=== PATIENT | female | born 1955 | race African-American/Black ===

== ENCOUNTER 2018-07-28 22:21 | Inpatient (IN) | payer MEDICARE, MEDICAID ==
[~2018-07-28] VITALS: Ht 170.2 cm; Wt 90.7 kg
--- NOTE | ~2018-07-28 | CN ---
PATIENT NAME:CAMILO CARR MEDICAL RECORD: [id number] : 53 LOCATION:D.MS Le2239 ADMIT DATE: 07/28/18 ACCOUNT: [id number] CONSULTING PHYSICIAN: JOB MCCULLOUGH MD REFERRING PHYSICIAN: NIKO HUMPHREY MD DATE OF CONSULTATION: 07/29/2018 CONSULT REQUESTING PHYSICIAN: Niko Humphrey MD REASON FOR CONSULTATION: Acute asthma exacerbation with syncopal episode. HISTORY OF PRESENT ILLNESS: Ms. Carr is a 62-year-old -Emir[place] female who has a history of COPD and asthma. The patient is steroid dependent. 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 According to the patient, she was in labor and delivery with the family. She passed out over there and brought into the ER with worsening shortness of breath. At that time, the patient was awake and alert, but she was coughing with yellow-colored sputum production. She hears herself wheezing. The cough is spasmodic in nature. REVIEW OF SYSTEMS: Mainly in the history of present illness. PAST MEDICAL HISTORY: 1. Hypertension. 2. CHF. 3. COPD. 4. Asthma. 5. Anxiety, depression. ALLERGIES: She is allergic to PENICILLIN. MEDICATIONS: She is on alprazolam, prednisone, and fluticasone inhaler. PERSONAL AND SOCIAL HISTORY: The patient is an ex-smoker. She is a nondrinker. FAMILY HISTORY: Noncontributory. PHYSICAL EXAMINATION: GENERAL: Now, the patient is lying comfortably. She is not in acute distress. VITAL SIGNS: The blood pressure 144/54, pulse is 70, respirations 20, temperature 98.2, SPO2 is 96% on 3 liter nasal cannula. HEENT: Conjunctivae are pink. Sclerae nonicteric. NECK: Supple, no JVD. CHEST: There is prolonged expiration with wheezing. HEART: Rhythm regular, normal sound, no murmur. The heart sounds are bit distant. ABDOMEN: Soft, bowel sounds present. No hepatosplenomegaly. RECTAL: Deferred. EXTREMITIES: No cyanosis, no clubbing, no pedal edema. SKIN: Warm, normal turgor. CENTRAL NERVOUS SYSTEM: The patient is awake and alert. There are no obvious cranial nerve abnormalities. The gait was not tested. IMAGING: Chest radiograph: There is increased interstitial marking, no acute infiltrate. CONSULT REPORT [id number] CAMILO CARR LABORATORY DATA: CBC: WBC 10.6, hemoglobin 15.2, hematocrit is 45.4, the platelet count is 287, neutrophils are 86.2%. Chemistry: Sodium 141, potassium 4.1, BUN is 13, creatinine is 1.3, glucose 198. ABG: The pH was 7.34, pCO2 was 36.7, the pO2 was 227 on 100% nonrebreather. IMPRESSION: 1. Vlyrh-ne-gyfeogq hypoxic respiratory failure. 2. Acute exacerbation of asthma and COPD. 3. Asthma COPD overlap syndrome. 4. Acute bronchitis. 5. Syncopal episode. 6. Allergic rhinitis. 7. Acute cough. RECOMMENDATION: 1. Albuterol ipratropium nebulizer q.4 hourly and 2 hourly p.r.n., discontinue Tudorza, methylprednisolone IV. Start on Brovana and budesonide nebulizer. 2. Start on Singulair 10 mg a day. 3. Supplemental oxygen as required. 4. Continue oral Lasix. 5. Check the cardiac echo. 6. Follow up labs and chest radiograph. The syncopal episode is most likely cough syncope with the patient's severe bronchospasm and coughing. Dr. Humphrey, thank you for involving me in the care of Ms. Carr. TRANSINT:[id number] Voice Confirmation ID: [id number] DOCUMENT ID: [id number] JOB MCCULLOUGH MD CC: [id number] DICTATION DATE: 07/29/18 140 TRANSMISSION LINE ENGINEER: 07/29/18 1418 ADM IN [place] [id number] [place] [address]
--- NOTE | ~2018-07-28 | EC ---
PATIENT:CAMILO CARR DATE OF SERVICE: 07/29/18 SEX: F MEDICAL RECORD: [id number] DATE OF : 53 LOCATION:D.MS Sosa AGE OF PATIENT: 62 ADMISSION DATE: 07/29/18 REFERRING PHYSICIAN: INTERPRETING PHYSICIAN: JACOBO CRABTREE MD ECHOCARDIOGRAM REPORT ECHO CHARGES 4 ECHO COMPLETE Date: 07/30/18 CLINICAL DIAGNOSIS: SYNCOPAL, PUL HTN ECHOCARDIOGRAPHIC MEASUREMENTS (adult normal given) AC root (d.<3.7cm) 2.3 cm LV Septum d (<1.2 cm> 1.0 cm Valve Excursion 1.0 cm LV Septum (systole) 1.1 cm Left Atria (s.<4.0cm> 3.5 cm LVPW d(<1.2cm) 0.9 cm RV (d.<2.3cm) 3.1 cm LVPW (sytole) 1.0 cm LV diastole(<5.6CM) 4.9 cm MV E-F(>70mm/sec) cm LV systole 3.9 cm LVOT Diameter 1.8 cm MV exc.(>10mm) cm Est.ejection fraction (50-75%) % DOPPLER: LVIT cm/sec A 98 cm/sec E 81 cm/sec LA cm/sec RVSP 18.9 mmHg LVOT 155 cm/sec AOP1/2T m/s Asc. Ao 197 cm/sec RVOT 100 cm/sec RA cm/sec PA 97 cm/sec AV Gradient Peak 15.6 mmHg AV Mean 10.6 mmHg AV Area 2.2 cm MV Gradient Peak 5.6 mmHg MV Mean 3.0 mmHg MV Area cm COMMENTS: Director Of Group Counseling Program: Irving HERNANDEZ Drill Press Hand: 1 Dr. Jay TAPE# PACS Pericardial Effusion N DATE OF SERVICE: Adequate 2D echo, color flow, spectral Doppler, and M-mode. No LVH. LV internal dimensions are normal. Wall motion is normal. EF greater than 50% to 55%. Aortic valve sclerosis without stenosis by Doppler interrogation. Left atrium normal at 3.5 cm. Mitral valve shows no prolapse. Trace MR. Right-sided chambers are normal. Trace TR. TRANSINT:[id number] Voice Confirmation ID: [id number] DOCUMENT ID: [id number] ECHOCARDIOGRAM REPORT [id number] CAMILO CARR JACOBO CRABTREE MD at 0843 CC: [id number] DICTATION DATE: 08/01/18 0957 COLOR PASTE MIXER: 08/01/18 1137 DIS IN 08/03/18 [place] [id number] [place] [id number]
[2018-07-28 22:35] LABS: BASOPHILS 0.1 % (0-2); EOSINOPHILS 0 % (0-7); HEMATOCRIT 45.4 % (36.0-48.0); HEMOGLOBIN 15.2 g/dL (12-16); IMMATURE GRANULOCYTES 0.3 % (0-5); LYMPHOCYTES 12.5 % (15-50); MCH 28.7 pg (26.0-34.0); MCHC 33.5 g/dL (31.0-37.0); MCV 85.7 fL (80.0-100.0); MEAN PLATELET VOLUME 10.7 fL (7.4-10.4); MONOCYTES 0.9 % (2-11); NEUTROPHILS 86.2 % (40-80); PLATELET COUNT 287 10x3/uL (130-400); RDW 15.1 % (11.5-14.5); WBC 10.6 10x3/uL (4.8-10.8)
[2018-07-28 22:46] VITALS: BP 159/127
[2018-07-28 22:49] LABS: ALBUMIN 3.3 g/dL (3.4-5.0); ALKALINE PHOSPHATASE 122 U/L (46-116); ALT (SGPT) 23 U/L (10-68); BILIRUBIN - TOTAL 0.25 mg/dL (0.2-1.3); CALC OSMOLALITY 286 mosm/kg (275-300); CALCIUM 8.5 mg/dL (8.5-10.1); CARBON DIOXIDE 19.5 mmol/L (21.0-32.0); CHLORIDE - SERUM 107 mmol/L (98-107); CREATININE - SERUM 1.3 mg/dL (0.6-1.3); POTASSIUM - SERUM 4.1 mmol/L (3.5-5.1); PROTEIN - SERUM 7.5 g/dL (6.4-8.2); SODIUM 141 mmol/L (136-145); UREA NITROGEN 13 mg/dL (7-18); eGFR NON AFRICAN AMERICAN 44 mL/min (90-120)
[2018-07-28] MEDS ORDERED: PREDNISONE1 MG (22:53)
[2018-07-28] MEDS ORDERED: HYDROCODON-ACE1 EAC7 PO (22:54)
[2018-07-28] MEDS ORDERED: XANAX1 MG PO (22:54)
[2018-07-28 22:55] LABS: MAGNESIUM - SERUM 1.9 mg/dL (1.8-2.4); PRO BNP 24 pg/mL (0-125); TROPONIN-I < 0.017 ng/mL (0.000-0.060)
[2018-07-28 23:09] LABS: GLUCOSE 198 mg/dL (74-106)
[2018-07-28 23:27] VITALS: BP 106/75
[2018-07-29 00:01] VITALS: BP 135/74
[2018-07-29] MEDS ORDERED: FUROSEMIDE20 MG PO (01:47)
[2018-07-29 03:28] VITALS: BMI 31.4
[2018-07-29 09:30] VITALS: BP 135/64
[2018-07-29] MEDS ORDERED: HYDROCODONE-APA1 TAB PO (10:41)
[2018-07-29] MEDS ORDERED: SPIRIVA18 MCG INH (10:43)
[2018-07-29] MEDS ORDERED: PROAIR HFA8.5 GM INH (10:43)
[2018-07-29] MEDS ORDERED: TRAZODONE HCL50 MG PO (10:43)
[2018-07-29 12:34] VITALS: BP 144/54
[2018-07-29 13:52] LABS: THYROID STIMULATING HORMONE 0.26 uIU/mL (0.36-3.74)
[2018-07-29 13:56] VITALS: Ht 170.2 cm; Wt 90.7 kg
[2018-07-29 16:36] VITALS: BP 142/78
[2018-07-29 18:35] VITALS: BP 138/60
[2018-07-30] VITALS (7 sets, daily range): BP systolic 141–168; BP diastolic 78–83
[2018-07-30 05:35] LABS: HEMATOCRIT 40.6 % (36.0-48.0); HEMOGLOBIN 13.3 g/dL (12-16); LYMPHOCYTES 4.3 % (15-50); MCH 27.8 pg (26.0-34.0); MCHC 32.8 g/dL (31.0-37.0); MCV 84.8 fL (80.0-100.0); MEAN PLATELET VOLUME 10.3 fL (7.4-10.4); NEUTROPHILS 93.7 % (40-80); RBC 4.79 10x6/uL (4.00-5.40); RDW 14.7 % (11.5-14.5)
[2018-07-30 05:39] LABS: PLATELET COUNT 221 10x3/uL (130-400); WBC 15.1 10x3/uL (4.8-10.8)
[2018-07-30 06:15] LABS: ALBUMIN 2.8 g/dL (3.4-5.0); BILIRUBIN - TOTAL 0.16 mg/dL (0.2-1.3); CALCIUM 8.4 mg/dL (8.5-10.1); CREATININE - SERUM 1.2 mg/dL (0.6-1.3); PROTEIN - SERUM 6.7 g/dL (6.4-8.2)
[2018-07-31 00:54] VITALS: BP 138/58
[2018-07-31 06:22] LABS: BASOPHILS 0.1 % (0-2); EOSINOPHILS 0 % (0-7); HEMATOCRIT 44.9 % (36.0-48.0); HEMOGLOBIN 14.8 g/dL (12-16); IMMATURE GRANULOCYTES 0.6 % (0-5); LYMPHOCYTES 5.8 % (15-50); MCH 28.2 pg (26.0-34.0); MCV 85.5 fL (80.0-100.0); MEAN PLATELET VOLUME 10.8 fL (7.4-10.4); NEUTROPHILS 90.5 % (40-80); PLATELET COUNT 257 10x3/uL (130-400); RBC 5.25 10x6/uL (4.00-5.40); RDW 15.2 % (11.5-14.5); WBC 13.6 10x3/uL (4.8-10.8)
[2018-07-31 06:33] LABS: ANION GAP 17.2 mmol/L (8-16); BILIRUBIN - TOTAL 0.12 mg/dL (0.2-1.3); CALCIUM 8.5 mg/dL (8.5-10.1); CARBON DIOXIDE 19.9 mmol/L (21.0-32.0); CREATININE - SERUM 1.2 mg/dL (0.6-1.3); POTASSIUM - SERUM 4.1 mmol/L (3.5-5.1); PROTEIN - SERUM 7.3 g/dL (6.4-8.2)
[2018-07-31 08:46] VITALS: BP 134/74
[2018-07-31 16:38] VITALS: BP 144/76
[2018-07-31 20:00] VITALS: BP 128/75
[2018-08-01] VITALS: BP 130/70
[2018-08-01 05:53] VITALS: BP 129/66
[2018-08-01 06:08] LABS: BASOPHILS 0.1 % (0-2); EOSINOPHILS 0 % (0-7); HEMATOCRIT 43.3 % (36.0-48.0); HEMOGLOBIN 14.3 g/dL (12-16); IMMATURE GRANULOCYTES 0.5 % (0-5); LYMPHOCYTES 6.6 % (15-50); MCH 27.9 pg (26.0-34.0); MCV 84.4 fL (80.0-100.0); MEAN PLATELET VOLUME 10.8 fL (7.4-10.4); MONOCYTES 3.4 % (2-11); NEUTROPHILS 89.4 % (40-80); PLATELET COUNT 246 10x3/uL (130-400); RBC 5.13 10x6/uL (4.00-5.40); RDW 15.1 % (11.5-14.5)
[2018-08-01 06:11] LABS: WBC 9.7 10x3/uL (4.8-10.8)
[2018-08-01 06:28] LABS: ALBUMIN 2.7 g/dL (3.4-5.0); ANION GAP 12.7 mmol/L (8-16); BILIRUBIN - TOTAL 0.24 mg/dL (0.2-1.3); CALCIUM 8.6 mg/dL (8.5-10.1); CARBON DIOXIDE 23.4 mmol/L (21.0-32.0); POTASSIUM - SERUM 4.1 mmol/L (3.5-5.1); PROTEIN - SERUM 6.6 g/dL (6.4-8.2)
[2018-08-01 10:08] VITALS: BP 132/78
[2018-08-01 20:00] VITALS: BP 127/65
[2018-08-02 06:01] LABS: BASOPHILS 0.1 % (0-2); EOSINOPHILS 0 % (0-7); HEMOGLOBIN 14.7 g/dL (12-16); IMMATURE GRANULOCYTES 0.6 % (0-5); LYMPHOCYTES 11.2 % (15-50); MCH 27.9 pg (26.0-34.0); MCHC 32.7 g/dL (31.0-37.0); MCV 85.6 fL (80.0-100.0); MONOCYTES 7.5 % (2-11); NEUTROPHILS 80.6 % (40-80); PLATELET COUNT 259 10x3/uL (130-400); RBC 5.26 10x6/uL (4.00-5.40); RDW 15.1 % (11.5-14.5)
[2018-08-02 06:03] LABS: WBC 13.3 10x3/uL (4.8-10.8)
[2018-08-02 06:24] VITALS: BP 123/74
[2018-08-02 06:29] LABS: ALBUMIN 2.5 g/dL (3.4-5.0); ANION GAP 14.2 mmol/L (8-16); BILIRUBIN - TOTAL 0.17 mg/dL (0.2-1.3); CALCIUM 8.2 mg/dL (8.5-10.1); CREATININE - SERUM 1.1 mg/dL (0.6-1.3); POTASSIUM - SERUM 4.2 mmol/L (3.5-5.1)
[2018-08-02 09:21] VITALS: BP 158/71
[2018-08-02 11:57] VITALS: BP 91/70
[2018-08-02 17:49] VITALS: BP 110/90
[2018-08-02 20:00] VITALS: BP 111/55
[2018-08-03 06:13] LABS: BASOPHILS 0 % (0-2); EOSINOPHILS 0 % (0-7); HEMATOCRIT 47.1 % (36.0-48.0); HEMOGLOBIN 15.7 g/dL (12-16); IMMATURE GRANULOCYTES 0.6 % (0-5); LYMPHOCYTES 5.6 % (15-50); MCH 28.1 pg (26.0-34.0); MCHC 33.3 g/dL (31.0-37.0); MCV 84.4 fL (80.0-100.0); MEAN PLATELET VOLUME 11.2 fL (7.4-10.4); MONOCYTES 5.8 % (2-11); PLATELET COUNT 262 10x3/uL (130-400); RBC 5.58 10x6/uL (4.00-5.40); RDW 15.2 % (11.5-14.5)
[2018-08-03 06:19] LABS: WBC 17.6 10x3/uL (4.8-10.8)
[2018-08-03 06:43] LABS: ALBUMIN 2.6 g/dL (3.4-5.0); ANION GAP 15.4 mmol/L (8-16); BILIRUBIN - TOTAL 0.12 mg/dL (0.2-1.3); CARBON DIOXIDE 23.7 mmol/L (21.0-32.0); CREATININE - SERUM 1.2 mg/dL (0.6-1.3); POTASSIUM - SERUM 4.1 mmol/L (3.5-5.1); PROTEIN - SERUM 6.7 g/dL (6.4-8.2)
[2018-08-03 10:30] VITALS: BP 127/70
[2018-08-03] MEDS ORDERED: IPRAT-ALBUT 0.5-3 ML UPD (12:53)
[2018-08-03] MEDS ORDERED: BROVANA15 MCG/2 M INH (12:53)
[2018-08-03] MEDS ORDERED: NICODERM C1 PATCH .2 TRANSDERM (12:54)
[2018-08-03] MEDS ORDERED: LISINOPRIL10 MG PO (12:54)
[2018-08-03] MEDS ORDERED: HCTZ25 MG PO (12:55)
[2018-08-03] MEDS ORDERED: SINGULAIR10 MG PO (12:56)
[2018-08-03] MEDS ORDERED: K-DUR20 MEQ PO (12:56)
[2018-08-03] MEDS ORDERED: TESSALON PERLE100 MG PO (12:56)
[2018-08-03] MEDS ORDERED: PULMICORT0.5 MG/21 UPD (12:56)
[2018-08-03] MEDS ORDERED: PREDNISONE20 MG PO (12:59)
[2018-08-03 13:24] VITALS: BP 102/88
== END 2018-08-03 15:54 | disposition home or self-care (01) | DRG 189 ==
LOC: D.ER 22:21 → D.EDHOLD 23:52 → OBSVTIME 23:52 → D.MS 07-29 00:06
PROVIDERS: Family Medicine
DX: J96.01 Acute respiratory failure with hypoxia (principal); J44.0 Chronic obstructive pulmonary disease with (acute) lower respiratory infection; M35.1 Other overlap syndromes; J44.1 Chronic obstructive pulmonary disease with (acute) exacerbation; J45.901 Unspecified asthma with (acute) exacerbation; F17.293 Nicotine dependence, other tobacco product, with withdrawal; J20.9 Acute bronchitis, unspecified; R05 Cough; E66.9 Obesity, unspecified; Z68.31 Body mass index [BMI] 31.0-31.9, adult; G89.29 Other chronic pain; I11.0 Hypertensive heart disease with heart failure; I50.9 Heart failure, unspecified; F41.9 Anxiety disorder, unspecified

== ENCOUNTER 2018-12-15 16:01 | Inpatient (IN) | payer MEDICARE ==
[~2018-12-15] VITALS: Ht 170.2 cm; Wt 93.9 kg
--- NOTE | ~2018-12-15 | CN ---
PATIENT NAME:CAMILO CARR MEDICAL RECORD: [id number] : 53 LOCATION:D. D.2102 ADMIT DATE: 12/15/18 ACCOUNT: [id number] CONSULTING PHYSICIAN: JOB MCCULLOUGH MD REFERRING PHYSICIAN: KARSON KAUR DO DATE OF CONSULTATION: 12/17/2018 CONSULT REQUESTING PHYSICIAN: Dr. Mancilla. REASON FOR CONSULTATION: Acute exacerbation of chronic obstructive pulmonary disease and shortness of breath. HISTORY OF PRESENT ILLNESS: Ms. Carr is a 63-year-old -[place]ub[place] female, very well known to me from previous hospitalization. According to the patient, she is sick for the last few days. She is admitted a couple of times to [facility]. She is coughing. She is wheezing. She has shortness of breath with mild exertion. She is also having obstructive sleep apnea, for which she is using the CPAP machine. She is feeling a bit better, but is still coughing. REVIEW OF SYSTEMS: As in history of present illness. PAST MEDICAL HISTORY: 1. Hypertension. 2. Congestive heart failure. 3. History of syncope. 4. Chronic obstructive pulmonary disease. 5. Asthma. 6. Nocturnal hypoxia. 7. BiPAP. 8. Anxiety and depression. PAST SURGICAL HISTORY: She had a cholecystectomy. ALLERGIES: SHE IS ALLERGIC TO PENICILLIN. MEDICATIONS: She is on methylprednisolone IV, doxycycline IV. Her other medication is reviewed. PERSONAL AND SOCIAL HISTORY: The patient is an ex-smoker. She is a nondrinker. FAMILY HISTORY: Noncontributory. PHYSICAL EXAMINATION: GENERAL: Now, the patient is lying comfortably in bed. She is not in acute distress. HEENT: Conjunctivae are pink. Sclerae nonicteric. NECK: Neck is supple, no JVD. CHEST: There is prolonged expiration with wheezing. HEART: Rhythm regular, normal sound, no murmur. ABDOMEN: Abdomen is soft, bowel sounds present. No hepatosplenomegaly. RECTAL: Deferred. EXTREMITIES: No cyanosis, no clubbing, no pedal edema. CENTRAL NERVOUS SYSTEM: The patient is awake and alert. There are no obvious cranial nerve abnormality. The gait was not tested. CONSULT REPORT [id number] CAMILO CARR CHEST RADIOGRAPH: There is no acute infiltrate. IMPRESSION: 1. Ptafp-gt-lwebrtl hypoxic respiratory failure. 2. Acute exacerbation of chronic obstructive pulmonary disease. 3. COPD asthma overlap syndrome. 4. Tracheobronchitis. 5. Acute cough. 6. Allergic rhinitis. 7. Morbid obesity. 8. Congestive heart failure. 9. Obstructive sleep apnea, on CPAP at night with oxygen. RECOMMENDATION: 1. Continue doxycycline IV, methylprednisolone IV. 2. Albuterol, ipratropium nebulizer. 3. Brovana, budesonide nebulizer. 4. Singulair 10 mg daily. 5. Mucinex DM. 6. Tessalon Perles. 7. Follow up labs and chest radiograph. Thank you for involving me in the care of Ms. Carr. TRANSINT:[id number] Voice Confirmation ID: [id number] DOCUMENT ID: [id number] JOB MCCULLOUGH MD CC: [id number] DICTATION DATE: 12/17/18 163 RECORDS ADMINISTRATOR: 12/17/182039 ADM IN [facility] [address] [place] [address]
[~2018-12-15 16:01] MED LIST: BROVANA15 MCG/2 M INH; FUROSEMIDE20 MG PO; HCTZ25 MG PO; HYDROCODON-ACE1 EAC7 PO; HYDROCODONE-APA1 TAB PO; IPRAT-ALBUT 0.5-3 ML UPD; K-DUR20 MEQ PO; LISINOPRIL10 MG PO; NICODERM C1 PATCH .2 TRANSDERM; PREDNISONE1 MG; PREDNISONE20 MG PO; PROAIR HFA8.5 GM INH; PULMICORT0.5 MG/21 UPD; SINGULAIR10 MG PO; SPIRIVA18 MCG INH; TESSALON PERLE100 MG PO; TRAZODONE HCL50 MG PO; XANAX1 MG PO
[2018-12-15 17:06] LABS: BASOPHILS 0.2 % (0-2); EOSINOPHILS 0 % (0-7); HEMATOCRIT 46.4 % (36.0-48.0); IMMATURE GRANULOCYTES 0.3 % (0-5); LYMPHOCYTES 7.8 % (15-50); MCH 27.9 pg (26.0-34.0); MCHC 32.3 g/dL (31.0-37.0); MCV 86.2 fL (80.0-100.0); MEAN PLATELET VOLUME 9.9 fL (7.4-10.4); MONOCYTES 2.6 % (2-11); NEUTROPHILS 89.1 % (40-80); PLATELET COUNT 255 10x3/uL (130-400); RBC 5.38 10x6/uL (4.00-5.40); RDW 16.6 % (11.5-14.5); WBC 15.5 10x3/uL (4.8-10.8)
[2018-12-15 17:19] LABS: ANION GAP 17.4 mmol/L (8-16); BILIRUBIN - TOTAL 0.4 mg/dL (0.2-1.3); CALCIUM 8.6 mg/dL (8.5-10.1); CARBON DIOXIDE 21.1 mmol/L (21.0-32.0); CREATININE - SERUM 1.1 mg/dL (0.6-1.3); POTASSIUM - SERUM 4.5 mmol/L (3.5-5.1); PROTEIN - SERUM 7.8 g/dL (6.4-8.2)
[2018-12-15 18:12] VITALS: BP 117/56
[2018-12-16] VITALS: BP 109/54
[2018-12-16 04:00] VITALS: BP 120/52
[2018-12-16] MEDS ORDERED: DOXYCYCLINE HY100 M2 PO (04:10)
[2018-12-16] MEDS ORDERED: ZITHROMAX250 MG PO (04:10)
[2018-12-16] MEDS ORDERED: PREDNISONE20 MG PO (04:11)
[2018-12-16] MEDS ORDERED: STERAPRED DS 1010 MG PO (04:11)
[2018-12-16] MEDS ORDERED: DESERYL50 M2 PO (04:11)
[2018-12-16 06:12] LABS: BASOPHILS 0.2 % (0-2); EOSINOPHILS 0.1 % (0-7); HEMOGLOBIN 13.9 g/dL (12-16); IMMATURE GRANULOCYTES 0.2 % (0-5); LYMPHOCYTES 6.5 % (15-50); MCH 27.3 pg (26.0-34.0); MCHC 31.6 g/dL (31.0-37.0); MCV 86.3 fL (80.0-100.0); MEAN PLATELET VOLUME 11.2 fL (7.4-10.4); PLATELET COUNT 222 10x3/uL (130-400); RDW 16.4 % (11.5-14.5); WBC 12.5 10x3/uL (4.8-10.8)
[2018-12-16 06:34] LABS: ANION GAP 18.9 mmol/L (8-16); CALCIUM 8.4 mg/dL (8.5-10.1); CARBON DIOXIDE 20.6 mmol/L (21.0-32.0); CREATININE - SERUM 1.1 mg/dL (0.6-1.3); POTASSIUM - SERUM 4.5 mmol/L (3.5-5.1)
[2018-12-16 07:57] VITALS: BP 133/69
[2018-12-16 12:41] VITALS: Ht 170.2 cm; Wt 93.9 kg
[2018-12-16 12:42] VITALS: BP 141/77
[2018-12-16 15:30] VITALS: BP 140/68
[2018-12-16 20:00] VITALS: BP 133/65
[2018-12-17 05:07] LABS: HEMOGLOBIN 13.9 g/dL (12-16); MCH 27.5 pg (26.0-34.0); MCHC 31.6 g/dL (31.0-37.0); MCV 87.1 fL (80.0-100.0); MEAN PLATELET VOLUME 10.8 fL (7.4-10.4); PLATELET COUNT 238 10x3/uL (130-400); RBC 5.05 10x6/uL (4.00-5.40); WBC 20.2 10x3/uL (4.8-10.8)
[2018-12-17 05:14] LABS: ALBUMIN 2.6 g/dL (3.4-5.0); ANION GAP 14.4 mmol/L (8-16); BILIRUBIN - TOTAL 0.19 mg/dL (0.2-1.3); CALCIUM 8.5 mg/dL (8.5-10.1); CARBON DIOXIDE 24.2 mmol/L (21.0-32.0); MAGNESIUM - SERUM 2.1 mg/dL (1.8-2.4); POTASSIUM - SERUM 4.6 mmol/L (3.5-5.1); PROTEIN - SERUM 7.1 g/dL (6.4-8.2)
[2018-12-17 05:50] LABS: EOSINOPHILS 1 % (0-7); LYMPHOCYTES 7 % (15-50); MONOCYTES 3 % (2-11); NEUTROPHILS 89 % (40-80); PLATELET ESTIMATE NORMAL
[2018-12-17 09:12] VITALS: BP 136/64
[2018-12-17 20:31] VITALS: BP 132/63
[2018-12-17 23:50] VITALS: BP 121/57
[2018-12-18 03:50] VITALS: BP 138/77
[2018-12-18 05:15] LABS: BASOPHILS 0.1 % (0-2); EOSINOPHILS 0 % (0-7); HEMATOCRIT 42.5 % (36.0-48.0); HEMOGLOBIN 13.2 g/dL (12-16); IMMATURE GRANULOCYTES 0.5 % (0-5); LYMPHOCYTES 3.5 % (15-50); MCH 27.4 pg (26.0-34.0); MCHC 31.1 g/dL (31.0-37.0); MCV 88.4 fL (80.0-100.0); MEAN PLATELET VOLUME 10.3 fL (7.4-10.4); MONOCYTES 3.2 % (2-11); NEUTROPHILS 92.7 % (40-80); PLATELET COUNT 266 10x3/uL (130-400); RBC 4.81 10x6/uL (4.00-5.40); RDW 16.4 % (11.5-14.5); WBC 22.1 10x3/uL (4.8-10.8)
[2018-12-18 05:50] LABS: ALBUMIN 2.5 g/dL (3.4-5.0); ANION GAP 14.5 mmol/L (8-16); BILIRUBIN - TOTAL 0.18 mg/dL (0.2-1.3); CALCIUM 8.2 mg/dL (8.5-10.1); CARBON DIOXIDE 23.2 mmol/L (21.0-32.0); CREATININE - SERUM 1.2 mg/dL (0.6-1.3); POTASSIUM - SERUM 4.7 mmol/L (3.5-5.1); PROTEIN - SERUM 6.7 g/dL (6.4-8.2)
[2018-12-18 10:50] VITALS: BP 132/67
[2018-12-18 21:32] VITALS: BP 139/63
[2018-12-18 23:55] VITALS: BP 101/62
[2018-12-19 03:55] VITALS: BP 128/74
[2018-12-19 05:10] LABS: HEMATOCRIT 42.4 % (36.0-48.0); HEMOGLOBIN 13.3 g/dL (12-16); MCH 27.4 pg (26.0-34.0); MCHC 31.4 g/dL (31.0-37.0); MCV 87.4 fL (80.0-100.0); MEAN PLATELET VOLUME 11.6 fL (7.4-10.4); PLATELET COUNT 186 10x3/uL (130-400); RBC 4.85 10x6/uL (4.00-5.40); RDW 16.4 % (11.5-14.5); WBC 20.4 10x3/uL (4.8-10.8)
[2018-12-19 05:27] LABS: ALBUMIN 2.4 g/dL (3.4-5.0); ANION GAP 13.2 mmol/L (8-16); BILIRUBIN - TOTAL 0.3 mg/dL (0.2-1.3); CALCIUM 8.3 mg/dL (8.5-10.1); CARBON DIOXIDE 25.9 mmol/L (21.0-32.0); MAGNESIUM - SERUM 2.2 mg/dL (1.8-2.4); POTASSIUM - SERUM 5.1 mmol/L (3.5-5.1); PROTEIN - SERUM 6.7 g/dL (6.4-8.2)
[2018-12-19 05:51] LABS: LYMPHOCYTES 2 % (15-50); MONOCYTES 6 % (2-11); NEUTROPHILS 89 % (40-80); PLATELET ESTIMATE NORMAL
[2018-12-19 09:40] VITALS: BP 131/62
[2018-12-19 14:30] VITALS: BP 125/52
[2018-12-19 17:53] VITALS: BP 150/75
[2018-12-19 20:00] VITALS: BP 147/86
[2018-12-19 22:08] VITALS: BP 147/86
[2018-12-20 01:00] VITALS: BP 141/75
[2018-12-20 04:00] VITALS: BP 125/65
[2018-12-20 04:54] LABS: BASOPHILS 0.2 % (0-2); EOSINOPHILS 0 % (0-7); HEMOGLOBIN 13.8 g/dL (12-16); IMMATURE GRANULOCYTES 1.2 % (0-5); LYMPHOCYTES 6.3 % (15-50); MCH 27.3 pg (26.0-34.0); MCHC 31.4 g/dL (31.0-37.0); MCV 87.1 fL (80.0-100.0); MEAN PLATELET VOLUME 10.2 fL (7.4-10.4); MONOCYTES 4.1 % (2-11); NEUTROPHILS 88.2 % (40-80); RBC 5.05 10x6/uL (4.00-5.40); RDW 16.4 % (11.5-14.5); WBC 18.4 10x3/uL (4.8-10.8)
[2018-12-20 04:57] LABS: PLATELET COUNT 273 10x3/uL (130-400)
[2018-12-20 05:05] LABS: ALBUMIN 2.4 g/dL (3.4-5.0); ANION GAP 13.2 mmol/L (8-16); BILIRUBIN - TOTAL 0.29 mg/dL (0.2-1.3); CALCIUM 8.2 mg/dL (8.5-10.1); CARBON DIOXIDE 27.7 mmol/L (21.0-32.0); CREATININE - SERUM 1.1 mg/dL (0.6-1.3); MAGNESIUM - SERUM 2.2 mg/dL (1.8-2.4); POTASSIUM - SERUM 4.9 mmol/L (3.5-5.1); PROTEIN - SERUM 6.9 g/dL (6.4-8.2)
[2018-12-20 08:37] VITALS: BP 130/68
[2018-12-20 11:39] VITALS: BP 131/64
[2018-12-20 15:44] VITALS: BP 138/59
[2018-12-20 20:00] VITALS: BP 112/72
[2018-12-21 04:55] VITALS: BP 139/60
[2018-12-21 05:32] LABS: BASOPHILS 0.1 % (0-2); EOSINOPHILS 0 % (0-7); HEMATOCRIT 44.5 % (36.0-48.0); HEMOGLOBIN 13.8 g/dL (12-16); IMMATURE GRANULOCYTES 0.8 % (0-5); MCH 27.2 pg (26.0-34.0); MCV 87.8 fL (80.0-100.0); MEAN PLATELET VOLUME 10.7 fL (7.4-10.4); NEUTROPHILS 92.1 % (40-80); PLATELET COUNT 256 10x3/uL (130-400); RBC 5.07 10x6/uL (4.00-5.40); RDW 16.3 % (11.5-14.5); WBC 17.3 10x3/uL (4.8-10.8)
[2018-12-21 06:02] LABS: ALBUMIN 2.3 g/dL (3.4-5.0); ANION GAP 14.2 mmol/L (8-16); BILIRUBIN - TOTAL 0.24 mg/dL (0.2-1.3); CALCIUM 8.2 mg/dL (8.5-10.1); CARBON DIOXIDE 27.5 mmol/L (21.0-32.0); CREATININE - SERUM 1.1 mg/dL (0.6-1.3); MAGNESIUM - SERUM 2.4 mg/dL (1.8-2.4); POTASSIUM - SERUM 4.7 mmol/L (3.5-5.1); PROTEIN - SERUM 6.5 g/dL (6.4-8.2)
[2018-12-21 08:02] VITALS: BP 137/70
[2018-12-21 12:20] VITALS: BP 132/73
[2018-12-21 15:18] VITALS: BP 134/73
[2018-12-21 20:00] VITALS: BP 108/54
[2018-12-22] VITALS: BP 124/71
[2018-12-22 04:00] VITALS: BP 115/60
[2018-12-22 08:58] VITALS: BP 148/76
[2018-12-22 11:55] VITALS: BP 143/73
[2018-12-22] MEDS ORDERED: OMNICEF300 MG PO (14:29)
[2018-12-22] MEDS ORDERED: ELIQUIS5 MG PO (14:32)
[2018-12-22] MEDS ORDERED: Nicoderm [PBKC] TRANSDERM (14:34)
[2018-12-22] MEDS ORDERED: PREDNISONE20 MG PO (15:46)
[2018-12-22 15:55] VITALS: BP 130/64
--- NOTE | 2018-12-22 16:47 | MORECARE ---
CASE MANAGEMENT DISCHARGE SUMMARY PATIENT: CAMILO CARR UNIT: [id number] ADM DATE: 12/15/18 AGE: 63 : 54 SEX: F ROOM/BED: D.2102 AUTHOR: YONATAN JONES PHYSICIAN: REFERRING PHYSICIAN: KARSON KAUR DO DATE OF SERVICE: 12/22/18 Discharge Plan Patient Name: CAMILO CARR [facility] [facility] 1955 Planned Disposition: Home Anticipated Discharge Date: 12/22/18 Discharge Date: Expected LOS: 7 Initial Reviewer: [email or web address] Initial Review Date: 12/22/2018 Generated: 12/22/18 5:47 pm DCPIA - Discharge Planning Initial Assessment Updated by [email or web address]: Patrick Huitron on 12/22/18 4:45 pm * Is the patient Alert and Oriented? Yes * How many steps to enter\exit or inside your home? NONE * PCP DR. SMITH IN [place] * Pharmacy [facility] [place] * Preadmission Environment Home Alone * ADLs Independent * Equipment Cane Nebulizer Oxygen * Other Equipment OXYGEN AT NIGHT ONLY UNKNOWN PROVIDER * List name and contact numbers for known caregivers / representatives who currently or will assist patient after discharge: APYTON LEI, SISTER, MICHELE KILPATRICK, SON, * Verbal permission to speak to the caregivers and representatives has been obtained from the patient. N/A * Community resources currently utilized Private Duty Care * Please name any agencies selected above. [facility], AIDE SERVICES, M-F, 3 HOURS DAILY * Additional services required to return to the preadmission environment? No * Can the patient safely return to the preadmission environment? Yes * Has this patient been hospitalized within the prior 30 days at any hospital? Yes Patient Name: CAMILO CARR Page [phone] at 1647 All edits/amendments must be made on the electronic document DICTATION DATE: 12/22/181645 MOBILE LOUNGE DRIVER: ADAM 12/22/181645 RPT#: [id number] DC DATE: STATUS: ADM IN [facility] [address] [place] [address] END OF REPORT
--- NOTE | 2018-12-22 16:57 | MORECARE ---
CASE MANAGEMENT DISCHARGE SUMMARY PATIENT: CAMILO CARR UNIT: [id number] ADM DATE: 12/15/18 AGE: 63 : 54 SEX: F ROOM/BED: D.2100 AUTHOR: KAERNDOC PHYSICIAN: REFERRING PHYSICIAN: KARSON KAUR DO DATE OF SERVICE: 12/22/18 Discharge Plan Patient Name: CAMILO CARR Facility: [facility]:[place] : 1955 Planned Disposition: Home Anticipated Discharge Date: 12/22/18 Discharge Date: Expected LOS: 7 Initial Reviewer: [email or web address] Initial Review Date: 12/22/2018 Generated: 12/22/18 5:57 pm Comments DCP- Discharge Planning Updated by [id number]: Patrick Huitron on 12/22/18 3:[address] Patient Name: CAMILO CARR Admission Status: ER Accout number: [id number] Admission Date: 12-15-2018 : 1955 Admission Diagnosis:SHORTNESS OF BREATH Attending: KARSON KAUR Current LOS: 7 Anticipated DC Date: 12-22-2018 Planned Disposition: Home Primary Insurance: [facility] [employer] Discharge Planning Comments: CM MET WITH PT IN ROOM TO DISCUSS DISCHARGE PLANNING AND NEEDS. PT REPORTS LIVING AT HOME INDEPENDENTLY AND ALONE. PT HAS OXYGEN AT NIGHT,NEBULIZER AND CANE FROM UNKNOWN MEDICAL EQUIPMENT COMPANY. PT HAS PERSONAL CARE WITH [facility] 5 DAYS PER WEEK, 3 HOURS PER DAY. CM DISCUSSED AVAILABILITY OF HOME HEALTH, REHAB SERVICES AND MEDICAL EQUIPMENT. PT DENIES DISCHARGE NEEDS, WILL ACCEPT [facility]SECALLS ORDERED AND REPORTS HER SISTER WILL PICK HER UP FOR DISCHARGE HOME. IMPORTANT MESSAGE FROM MEDICARE PROVIDED AND EXPLAINED. EAP SPECIALIST NURSE NOTIFIED. Development Technical Lead: Patrick Huitron DCPIA - Discharge Planning Initial Assessment Updated by [id number]: Patrick Huitron on 12/22/18 4:45 pm * Is the patient Alert and Oriented? Yes * How many steps to enter\exit or inside your home? NONE * PCP DR. SMITH IN [place] * Pharmacy [facility] IN [place] * Preadmission Environment Home Alone * ADLs Independent * Equipment Cane Nebulizer Oxygen * Other Equipment OXYGEN AT NIGHT ONLY UNKNOWN PROVIDER * List name and contact numbers for known caregivers / representatives who currently or will assist patient after discharge: PAYTON LEI, SISTER, MICHELE KILPATRICK, SON, * Verbal permission to speak to the caregivers and representatives has been obtained from the patient. N/A * Community resources currently utilized Private Duty Care * Please name any agencies selected above. [facility], AIDE SERVICES, M-F, 3 HOURS DAILY * Additional services required to return to the preadmission environment? No * Can the patient safely return to the preadmission environment? Yes * Has this patient been hospitalized within the prior 30 days at any hospital? Yes Coverage Notice Reviewer: [id number] - Patrick Huitron Notice Issued Date-Time: 12/22/2018 16:25 Notice Type: IM Discharge Notice Notice Delivered To: Patient Relationship to Patient: Cutter Grinder Operator Name: Delivery Method: HAND - Hand Delivered Talisha Days: Prior Verbal Notification: Recipient Understood Notice: Yes Recipient Signature: Yes Med Rec Note Co-signed by Attending: Coverage Notice Comment: Last DP export: 12/22/18 3:47 p Patient Name: CAMILO CARR Page 44762 at 1657 All edits/amendments must be made on the electronic document DICTATION DATE: 12/22/181655 ARCHITECTURAL MODEL MAKER: ADAM 12/22/181655 RPT#: [id number] DC DATE: STATUS: ADM IN [facility] [address] [place] [address] END OF REPORT
== END 2018-12-22 18:11 | disposition home or self-care (01) | DRG 189 ==
LOC: D.ER 16:01 → D.M2 21:54
PROVIDERS: Family Medicine; ADMIT Family Medicine
DX: J96.21 Acute and chronic respiratory failure with hypoxia (principal); J44.1 Chronic obstructive pulmonary disease with (acute) exacerbation; J45.901 Unspecified asthma with (acute) exacerbation; N17.9 Acute kidney failure, unspecified; I82.622 Acute embolism and thrombosis of deep veins of left upper extremity; I50.32 Chronic diastolic (congestive) heart failure; I11.0 Hypertensive heart disease with heart failure; G47.33 Obstructive sleep apnea (adult) (pediatric); F32.9 Major depressive disorder, single episode, unspecified; F41.9 Anxiety disorder, unspecified; J32.9 Chronic sinusitis, unspecified; M54.2 Cervicalgia; J30.9 Allergic rhinitis, unspecified; E66.01 Morbid (severe) obesity due to excess calories; Z68.32 Body mass index [BMI] 32.0-32.9, adult